=== PATIENT | male | born 1965 | race Caucasian/White ===

== ENCOUNTER 2018-08-26 10:15 | Day surgery (SDC) | payer BC ==
[~2018-08-26] VITALS: Ht 177.8 cm; Wt 77.0 kg
[~2018-08-26 10:15] MED LIST: PROPOFOL 200 MG INJ ONE
[2018-08-26] MEDS ORDERED: HCTZ (11:09)
[2018-08-26 11:11] VITALS: Ht 177.8 cm; Wt 77.0 kg
[2018-08-26 11:19] VITALS: BP 124/74; PULSE 72; RESP 18
--- NOTE | 2018-08-26 11:23 | PREAC ---
Date/Time of Note Date/Time of Note DATE: 08/26/18 TIME: 11:21 Anesthesia Eval and Record Evaluation Time Pre-Procedure Interview DATE: 08/26/18 TIME: 11:21 Age 53 Sex male NPO: 8 hrs Preoperative diagnosis Colon screening Planned procedure Colonoscopy Past Medical History Past Medical History: Includes Cardio: HTN Surgery & Anesthesia Issues No known issue Meds Anticoagulation: No Beta Divya within 24 hr: No Reason Beta Divya not given: Pt. not on B-Divya Reported Medications [Hctz] No Conflict Check 08/26/18 Meds reviewed: Yes Allergies Coded Allergies: No Known Allergy (Unverified , 08/26/18) Allergies Reviewed: Yes Labs/Studies Labs Reviewed: Reviewed by anesthesiologist test: N/A Studies: ECG Pre-procedure Exam Last vitals Vital Signs Date Temp Pulse Resp B/P (MAP) Pulse Ox O2 O2 Flow FiO2 Time Delivery Rate 08/26/18 98.0 72 18 124/74 96 Room Air 11:19 (91) Airway: Adequate mouth opening, Adequate thyromental dist Mallampati: Mallampati II Teeth: Normal Lung: Normal Heart: Normal ASA Physical Status ASA physical status: 3 Emergency: None Planned Anesthetic General/MAC: MAC Planned Pain Management Parenteral pain med Pre-operative Attestations Prior to commencing anesthesia and surgery, the patient was re-evaluated, there was verification of: *The patient's identity *The results of appropriate recent lab work and preoperative vital signs *The above evaluation not changing prior to induction *Anesthetic plan, risk benefits, alternative and complications discussed with patient/family; questions answered; patient/family understands, accepts and wishes to proceed. BASHIR CARBAJAL MD Aug 26, 2018 11:23
[2018-08-26] MEDS ORDERED: LIDOCAINE 2% (SDV) 5 ML INJ ONE (11:24)
[2018-08-26] MEDS ORDERED: PROPOFOL 60 ML ONE (11:24)
--- NOTE | 2018-08-26 11:54 | PAC ---
Date/Time of Note Date/Time of Note DATE: 08/26/18 TIME: 11:53 Post-Anesthesia Notes Post-Anesthesia Note Last documented vital signs Vital Signs Date Temp Pulse Resp B/P (MAP) Pulse Ox O2 O2 Flow FiO2 Time Delivery Rate 08/26/18 98.0 72 18 124/74 96 Room Air 11:19 (91) Activity: WNL Respiratory function: WNL Cardiovascular function: WNL Mental status: Baseline Pain reasonably controlled: Yes Hydration appropriate: Yes Nausea/Vomiting absent: Yes Comments BP:115/56, P:78, Spo2:100%, T:98,9 BASHIR CARBAJAL MD Aug 26, 2018 11:54
== END 2018-08-26 15:17 | disposition home or self-care (01) ==
LOC: GIL 10:15 → EDBD 11:30 → GIL 15:17
PROVIDERS: ATTEND Internal Medicine Gastroenterology
DX: Z12.11 Encounter for screening for malignant neoplasm of colon (principal); K64.8 Other hemorrhoids; I10 Essential (primary) hypertension
CPT/HCPCS: 45378; Z7610